=== PATIENT | female | born 1950 | race Asian ===

== ENCOUNTER 2021-04-13 10:48 | Outpatient (CLI) | payer OTHER ==
--- NOTE | 2021-04-13 16:16 | DEXA Report ---
PROCEDURE: Dexa Spine and/or Hip INDICATIONS: OSTEOPENIA, FOREARM DONE DUE TO SPINE HARDWARE TECHNIQUE: Dual energy x-ray absorptiometry (DXA) was performed on a [employer] System. Regions measur ed are the AP Spine, femoral neck, and if needed forearm. COMPARISON: None. FINDINGS: Lumbar Spine: Bone Mineral Density 1.132 g/cm/cm,T score -0.4. Left Hip: Bone Mineral Density 0.627 g/cm/cm,T score -3.0. Left Femoral Neck: Bone Mineral Density 0.671 g/cm/cm, T score -2.6. (T score greater or equal to -1.0: NORMAL) (T score from -1.1 to -2.4: OSTEOPENIA) (T score less than or equal to -2.5 to: OSTEOPOROSIS) Impression: Osteoporosis. Patients with diagnosis of osteoporosis or osteopenia should have regular bone mineral density assess ment. For those eligible for Medicare, routine testing is allowed once every 2 years. Testing frequ ency can be increased for patients who have rapidly progressing disease or for those who are receivin g medical therapy to restore bone mass. Reviewed by: Catrachito White MD on 04/13/2021 4:15 PM PDT Approved by: Catrachito White MD on 04/13/2021 4:15 PM PDT Station ID: [id number]
== END 2021-04-13 10:49 | disposition home or self-care (01) ==
LOC: DI 10:48
PROVIDERS: ATTEND Internal Medicine
DX: Z13.820 Encounter for screening for osteoporosis (principal); N95.8 Other specified menopausal and perimenopausal disorders; M81.0 Age-related osteoporosis without current pathological fracture

== ENCOUNTER 2021-04-16 15:02 | Outpatient (CLI) | payer OTHER ==
--- NOTE | 2021-04-17 13:00 | Mammography Report ---
BILATERAL DIGITAL SCREENING MAMMOGRAM 3D/2D: 04/16/2021 CLINICAL: Routine screening. Comparison is made to exams dated: 02/14/2017 mammogram, 01/25/2016 mammogram, and 09/16/2014 mammogram - [facility]. The tissue of both breasts is predominantly fatty. No significant masses, calcifications, or other findings are seen in either breast. There has been no significant interval change. IMPRESSION: NEGATIVE There is no mammographic evidence of malignancy. A 1 year screening mammogram is recommended. This exam was interpreted at Station ID: [id number]. NOTE: For mammograms, a report in lay terms will be sent to the patient. Approximately 15% of breast malignancies will not be visualized mammographically. In the management of a palpable breast mass, a negative mammogram must not discourage biopsy of a clinically suspicious lesion. Electronically Signed By: Omer Frausto acr/penrad:04/16/2021 18:01:43 ACR BI-RADS Category 1: Negative 3341F PARENCHYMAL PATTERN: (F) - The breast(s) demonstrate(s) diffuse fatty replacement. BI-RADS CATEGORY: (1) - 1 RECOMMENDATION: (ANNUAL) - Recommend routine annual screening mammography. [id number] 1 year screening LATERALITY: (B)
== END 2021-04-16 15:03 | disposition home or self-care (01) ==
LOC: DI.N 15:02
PROVIDERS: ATTEND Internal Medicine
DX: Z12.31 Encounter for screening mammogram for malignant neoplasm of breast (principal)

== ENCOUNTER 2023-01-02 09:45 | Outpatient (CLI) | payer MEDICARE, OTHER | END 2023-01-02 10:00 | disposition home or self-care (01) | LOC: LAB.N 09:45 | PROVIDERS: ATTEND Physician Assistant Medical | DX: N30.00 Acute cystitis without hematuria (principal) | CPT/HCPCS: 87086; 87181 ==

== ENCOUNTER 2023-07-10 12:58 | Outpatient (CLI) | payer MEDICARE, OTHER ==
--- NOTE | 2023-07-11 10:46 | Mammography Report ---
BILATERAL DIGITAL SCREENING MAMMOGRAM 3D/2D: 07/10/2023 CLINICAL: Routine screening. Comparison is made to exams dated: 02/14/2017 mammogram - [facility], 04/16/2021 mammogram - [facility], 01/25/2016 mammogram, and 09/16/2014 mammogram - [facility]. Both breasts are extremely dense, which lowers the sensitivity of mammography (category d />75% gland ular tissue). No significant masses, calcifications, or other findings are seen in either breast. There has been no significant interval change. IMPRESSION: NEGATIVE There is no mammographic evidence of malignancy. A 1 year screening mammogram is recommended. Based on the Tyrer Cuzick model (a risk assessment model) the patients lifetime risk is 14.4% and he r 10 year risk is 13.1%. According to the ACR, ACS, and NCCN guidelines, an annual breast MRI exam al graham with mammogram is recommended if the patients lifetime risk is 20% or greater. This exam was interpreted at Station ID: [id number]. NOTE: For mammograms, a report in lay terms will be sent to the patient. Approximately 15% of breast malignancies will not be visualized mammographically. In the management of a palpable breast mass, a negative mammogram must not discourage biopsy of a clinically suspicious lesion. Electronically Signed By: Epi lozoya/lin:07/10/2023 18:09:42 letter sent: No_Letter ACR BI-RADS Category 1: Negative 3341F PARENCHYMAL PATTERN: (VD) - The breast(s) demonstrate(s) extremely dense parenchyma, limiting the sen sitivity of mammography. BI-RADS CATEGORY: (1) - 1 Mammogram [id number] 1 year screening LATERALITY: (B)
== END 2023-07-10 12:59 | disposition home or self-care (01) ==
LOC: DI 12:58
PROVIDERS: ATTEND Physician Assistant
DX: Z12.31 Encounter for screening mammogram for malignant neoplasm of breast (principal); R92.343 Mammographic extreme density, bilateral breasts

== ENCOUNTER 2023-07-10 13:00 | Outpatient (CLI) | payer MEDICARE, OTHER ==
--- NOTE | 2023-07-10 15:52 | DEXA Report ---
PROCEDURE: Dexa Spine and/or Hip INDICATIONS: OSTEOPOROSIS TECHNIQUE: Dual energy x-ray absorptiometry (DXA) was performed on a [employer] System. Regions measur ed are the AP Spine, femoral neck, and if needed forearm. COMPARISON: 04/13/2021 FINDINGS: Lumbar Spine: Bone Mineral Density 1.156 g/cm/cm,T score -0.4. Normal Left Femoral Neck: Bone Mineral Density 0.588 g/cm/cm, T score -3.3. Left Hip: Bone Mineral Density 0.660 g/cm/cm,T score -2.7. Osteoporosis Left Forearm: Bone Mineral Density 0.576 g/cm/cm, T score -3.4. Osteoporosis (T score greater or equal to -1.0: NORMAL) (T score from -1.1 to -2.4: OSTEOPENIA) (T score less than or equal to -2.5 to: OSTEOPOROSIS) Impression: By WHO criteria, this patient has osteoporosis. No statistical interval change in bone minteral density of the lumbar spine. Interval statistical dec rease in bone minteral density of the hip. Patients with diagnosis of osteoporosis or osteopenia should have regular bone mineral density assess ment. For those eligible for Medicare, routine testing is allowed once every 2 years. Testing frequ ency can be increased for patients who have rapidly progressing disease or for those who are receivin g medical therapy to restore bone mass. Reviewed by: Omer Frausto on 07/10/2023 3:51 PM PST Approved by: Omer Frausto on 07/10/2023 3:51 PM PST Station ID: [id number]
--- NOTE | 2023-07-10 15:55 | DEXA Report ---
PROCEDURE: Dexa Spine and/or Hip INDICATIONS: OSTEOPOROSIS TECHNIQUE: Dual energy x-ray absorptiometry (DXA) was performed on a [employer] System. Regions measur ed are the AP Spine, femoral neck, and if needed forearm. COMPARISON: 04/13/2021 FINDINGS: Lumbar Spine: Bone Mineral Density 1.156 g/cm/cm,T score -0.4. Normal Left Femoral Neck: Bone Mineral Density 0.588 g/cm/cm, T score -3.3. Left Hip: Bone Mineral Density 0.660 g/cm/cm,T score -2.7. Osteoporosis Left Forearm: Bone Mineral Density 0.576 g/cm/cm, T score -3.4. Osteoporosis (T score greater or equal to -1.0: NORMAL) (T score from -1.1 to -2.4: OSTEOPENIA) (T score less than or equal to -2.5 to: OSTEOPOROSIS) Impression: By WHO criteria, this patient has osteoporosis. Interval statistical decrease in bone mineral density of the forearm. Patients with diagnosis of osteoporosis or osteopenia should have regular bone mineral density assess ment. For those eligible for Medicare, routine testing is allowed once every 2 years. Testing frequ ency can be increased for patients who have rapidly progressing disease or for those who are receivin g medical therapy to restore bone mass. Reviewed by: Omer Frausto on 07/10/2023 3:53 PM PST Approved by: Omer Frausto on 07/10/2023 3:53 PM PST Station ID: [id number]
== END 2023-07-10 13:01 | disposition home or self-care (01) ==
LOC: DI 13:00
PROVIDERS: ATTEND Physician Assistant
DX: M81.0 Age-related osteoporosis without current pathological fracture (principal)

== ENCOUNTER 2023-08-22 07:22 | Day surgery (SDC) | payer MEDICARE, OTHER ==
[2023-08-22] MEDS ORDERED: LACTATED RINGERS 1,000 ML IV ONE ×2 (07:27→09:01)
--- NOTE | 2023-08-22 07:53 | ANESTHESIA ---
Pre-Anesthesia VS, & Labs - Diagnosis screening - Procedure colonoscopy Height: 5 ft 4 in Weight (kg): 47.5 kg Body Mass Index: 17.9 BMI Classification: Underweight - NPO >8 hours - Is Patient ?: No Home Medications and Allergies Home Medications: Ambulatory Orders clonazePAM [Clonazepam] 1 tab PO HS 08/21/23 clonazePAM [Clonazepam] 1 tab PO HS 08/21/23 Allergies/Adverse Reactions: Allergies Allergy/AdvReac Type Severity Reaction Status Date / Time No Known Drug Allergies Allergy Verified 08/21/23 13:09 Anes History & Medical History - Anesthetic History Anesthesia Complications: reports: No previous complications - Medical History Cardiovascular: reports: None Pulmonary: reports: None Gastrointestinal: reports: GERD Urinary: reports: Other - Surgical History General: reports: Colonoscopy Gynecologic: reports: section Neurologic: reports: Other Exam General: Alert, Oriented x3 Dental: WNL Mouth Opening: Greater than 4 Fingerbreadths Neck Mobility: Normal Mallampati classification: II Thyromental Distance: greater than 6 cm Respiratory: Lungs clear Cardiovascular: Regular rate Plan Anesthesia Type: Total IV Consent for Procedure(s) Verified and Reviewed: Yes Code Status: Attempt Resuscitation ASA classification: 2-Mild systemic disease Is this case an emergency?: No
[2023-08-22] MEDS ORDERED: PROPOFOL 500 MG/50 ML 500 MG/50 ML VIAL ONE (08:04)
--- NOTE | 2023-08-22 09:03 | HISTORY & PHYSICAL EXAMINATION ---
Chief Complaint - Chief Complaint Chief Complaint: here for colonoscopy History of Present Illness - History Obtained From Records Reviewed: yes History obtained from: pt Exam Limitations: none - History of Present Illness HPI Comment/Other: last colonoscopy in [place]. 5 year interval recommended. report not available no gi problems History - Past Medical History Cardiovascular: reports: None Respiratory: reports: None GI: reports: GERD : reports: Other MRSA Hx?: No - Past Surgical History General: reports: Colonoscopy /[employer]: reports: section Neuro: reports: Other Meds/Allgy - Home Medications Home Medications: Ambulatory Orders Medication Instructions Recorded Confirmed clonazePAM [Clonazepam] 1 tab PO HS 08/21/23 08/21/23 - Allergies Allergies/Adverse Reactions: Allergies Allergy/AdvReac Type Severity Reaction Status Date / Time No Known Drug Allergies Allergy Verified 08/21/23 13:09 Review of Systems - Other Findings Other Findings: 10 pt ros as above otherwise unremarkable Exam - Physical Exam General Appearance: positive: Alert Eyes Bilateral: positive: PERRL, EOMI ENT: positive: No signs of dehydration Neck: positive: No JVD Respiratory: positive: No respiratory distress Cardiovascular: positive: Regular rate & rhythm Abdomen: positive: Non-tender, No distention Neurologic/Psychiatric: positive: Oriented x3 Conclusion/Plan - Problem List (1) Colon cancer screening Conclusion/Plan: plan colonoscopy. parq held and consent obtained
--- NOTE | 2023-08-22 09:28 | ANESTHESIA POST OP EVALUATION ---
Anesthesia Post Eval - Post Anesthesia Eval Vitals: Last Vital Signs Temp 36.2 C L 08/22/23 09:01 Pulse 54 L 08/22/23 09:21 Resp 18 08/22/23 09:21 BP 117/56 L 08/22/23 09:21 Pulse Ox 99 08/22/23 09:21 O2 Flow Rate CV Function Including HR & BP: Stable Pain Control: Satisfactory Nausea & Vomiting: Negative Mental Status: Baseline Respiratory Status: Airway Patent Hydration Status: Satisfactory Anesthesia Complications: None
[2023-08-22 09:29] VITALS: BP 117/56; O2SAT 99
== END 2023-08-22 07:23 | disposition home or self-care (01) ==
LOC: SDS 07:22
PROVIDERS: ATTEND Surgery
DX: Z12.11 Encounter for screening for malignant neoplasm of colon (principal); K57.30 Diverticulosis of large intestine without perforation or abscess without bleeding; R63.6 Underweight; Z68.1 Body mass index [BMI] 19.9 or less, adult
CPT/HCPCS: G0121; J7120